=== PATIENT | female | born 1985 | race Caucasian/White ===

== ENCOUNTER 2018-01-03 11:58 | Emergency (ER) | payer MEDICAID ==
[~2018-01-03] VITALS: Ht 167.6 cm; Wt 76.0 kg
[2018-01-03 13:43] VITALS: BP 111/68
== END 2018-01-03 14:15 | disposition home or self-care (01) ==
LOC: EMS 12:01
DX: G89.18 Other acute postprocedural pain (principal)
CPT/HCPCS: 99282

== ENCOUNTER 2018-01-04 23:43 | Emergency (ER) | payer MEDICAID ==
[~2018-01-04] VITALS: Ht 160 cm; Wt 76.0 kg
[2018-01-05] MEDS ORDERED: ACETAMINOPHEN 500 MG TABLET PO ONE (01:15)
[2018-01-05 01:55] VITALS: BP 118/70
== END 2018-01-05 02:01 | disposition home or self-care (01) ==
LOC: EMS 23:44
DX: O26.893 Other specified pregnancy related conditions, third trimester (principal); N61.0 Mastitis without abscess; Z3A.37 37 weeks gestation of pregnancy
CPT/HCPCS: 96372; 99283; J0690